=== PATIENT | female | born 1965 | race American Indian/Alaskan Native ===

== ENCOUNTER 2016-09-11 16:36 | Emergency (ER) | payer OTHER, BC ==
[2016-09-11 16:46] VITALS: BMI 26.9
[2016-09-11 16:52] VITALS: BP 116/76; PULSE 71; RESP 16; TEMP 97.9; O2SAT 98
--- NOTE | 2016-09-11 17:09 | ED PDOC ---
Arrival/HPI - General Chief Complaint: Trauma Time Seen by Provider: 09/11/16 17:04 Historian: Patient - History of Present Illness Narrative History of Present Illness (Text): 09/11/16 18:27 51-year-old female presents today with neck and upper back pain status post fall. Patient states she was sitting on a stool at work and Slid backwards off the stool falling towards the ground. Patient states she braced herself with her arms as she fell off the back of the stool and strained her back during the bracing. Patient denies numbness weakness or tingling in the extremities. Denies hitting her head. No headache dizziness or weakness. No chest pain or shortness of breath. Patient states incident occurred prior to arrival. Patient states her back did not hit the ground. She denies low back pain. Past Medical History - Provider Review Nursing Documentation Reviewed: Yes - Travel History Have you recently traveled outside [place] w/in the past 3 mons?: No - Infectious Disease Hx of Infectious Diseases: None - Tetanus Immunization Tetanus Immunization: Unknown - Reproductive Menopause: Yes - Cardiac Hx Hypertension: Yes - Pulmonary Hx Respiratory Disorders: No - Neurological Hx Neurological Disorder: No - HEENT Hx HEENT Disorder: No - Renal Hx Renal Disorder: No - Endocrine/Metabolic Hx Endocrine Disorders: No - Hematological/Oncological Hx Blood Disorders: No - Integumentary Hx Dermatological Disorder: No - Musculoskeletal/Rheumatological Hx Musculoskeletal Disorders: No - Gastrointestinal Hx Gastrointestinal Disorders: No - Genitourinary/Gynecological Hx Genitourinary Disorders: No - Psychiatric Hx Psychophysiologic Disorder: No Hx Substance Use: No - Surgical History Hx Hysterectomy: Yes Other/Comment: left breast cyst removed - Anesthesia Hx Anesthesia: Yes Hx Anesthesia Reactions: No Hx Malignant Hyperthermia: No Family/Social History - Physician Review Nursing Documentation Reviewed: Yes Family/Social History: Unknown Family HX Smoking Status: Never Smoked Hx Alcohol Use: No Hx Substance Use: No Allergies/Home Meds Allergies/Adverse Reactions: Allergies aspirin Adverse Reaction (Verified 06/08/16 18:30) SWELLING ciprofloxacin [From Cipro] Adverse Reaction (Verified 06/08/16 18:30) RASH ciprofloxacin HCl [From Cipro] Adverse Reaction (Verified 06/08/16 18:30) RASH Home Medications: Home Meds Medication Instructions Recorded Confirmed Candesartan/Hydrochlorothiazid 32 mg PO DAILY 06/08/16 06/08/16 [Candesartan-Hctz 32-12.5 mg Tb] Review of Systems - Review of Systems Constitutional: absent: Fatigue, Fevers Respiratory: absent: SOB, Cough Cardiovascular: absent: Chest Pain, Palpitations Gastrointestinal: absent: Abdominal Pain, Diarrhea, Nausea, Vomiting Genitourinary Female: absent: Dysuria, Frequency Musculoskeletal: Back Pain, Neck Pain. absent: Arthralgias Skin: absent: Rash, Pruritis Neurological: absent: Headache, Dizziness Physical Exam Vital Signs Reviewed: Yes Vital Signs Temp Pulse Resp BP Pulse Ox 09/11/16 16:46 97.9 F 71 16 116/76 98 Temperature: Afebrile Blood Pressure: Normal Pulse: Regular Respiratory Rate: Normal Appearance: Positive for: Well-Appearing, Non-Toxic, Comfortable Pain Distress: None Mental Status: Positive for: Alert and Oriented X 3 - Systems Exam Head: Present: Atraumatic Mouth: Present: Moist Mucous Membranes Neck: Present: Normal Range of Motion, Paraspinal Tenderness (+ bilateral paraspinal and trapezius tenderness. no midline tenderness. ), Trachea Midline. No: MIDLINE TENDERNESS Respiratory/Chest: Present: Clear to Auscultation, Good Air Exchange. No: Respiratory Distress, Accessory Muscle Use Cardiovascular: Present: Regular Rate and Rhythm, Normal S1, S2. No: Murmurs Back: Present: Normal Inspection, Paraspinal Tenderness (minimal upper thoracic paraspinal tenderness. ). No: Midline Tenderness Upper Extremity: Present: Normal Inspection, Normal ROM Lower Extremity: Present: Normal ROM Neurological: Present: GCS=15, Motor Func Grossly Intact, Normal Sensory Function, Gait Normal Skin: Present: Warm, Dry, Normal Color. No: Rashes Psychiatric: Present: Alert, Oriented x 3 Medical Decision Making ED Course and Treatment: 09/11/16 18:31 Patient nontoxic well-appearing in no distress with stable vital signs. Patient states she has taken Motrin at home even though she has an aspirin allergy. Patient states she has no allergy to Motrin. Patient states she would like to take a Motrin now. motrin given po Flexeril given for muscle spasms The incident occurred during working hours. The patient was advised to follow- up with employee health tomorrow. Patient verbalizes understanding of discharge instructions and need for immediate followup. Impression: Back pain, neck pain Motrin every 6 hours as needed for pain Flexeril one tablet every 8 hours as needed for muscle spasms: May cause drowsiness Followup with the orthopedist within the next 2 days Followup with primary care physician within the next 2 days Return if symptoms worsen persist or if new symptoms develop - Medication Orders Current Medication Orders: Discontinued Medications Cyclobenzaprine HCl (Flexeril) 10 mg PO STAT STA Stop: 09/11/16 17:06 Last Admin: 09/11/16 17:19 Dose: 10 MG Ibuprofen (Motrin Tab) 600 mg PO STAT STA Stop: 09/11/16 17:06 Last Admin: 09/11/16 17:20 Dose: 600 MG MAR Pain/Vitals Document 09/11/16 17:20 [facility] (Rec: 09/11/16 17:20 [facility] [id number]) Pain Reassessment Is This A Pain ReAssessment? No Sleep Is patient sleeping during reassessment? No Presence of Pain Presence of Pain Yes Pain Scale Used Pain Scale Used Numeric Location Pain Location Body Site Back Intensity 6 Disposition/Present on Arrival - Present on Arrival Any Indicators Present on Arrival: No History of DVT/PE: No History of Uncontrolled Diabetes: No Urinary Catheter: No History of Decub. Ulcer: No History Surgical Site Infection Following: Orthopedic Procedures - Disposition Have Diagnosis and Disposition been Completed?: Yes Diagnosis: Back pain, Neck pain Disposition: HOME/ ROUTINE Disposition Time: 17:07 Patient Plan: Discharge Condition: GOOD Discharge Instructions (ExitCare): Back Pain (ED) Additional Instructions: Motrin every 6 hours as needed for pain Flexeril one tablet every 8 hours as needed for muscle spasms: May cause drowsiness Follow up with Employee health tomorrow. Return if symptoms worsen persist or if new symptoms develop Prescriptions: Cyclobenzaprine [Cyclobenzaprine HCl] 10 mg PO Q8 #10 tab Ibuprofen [Motrin] 600 mg PO Q6H PRN #20 tab PRN Reason: pain/fever reduction Referrals: Perez King III, MD [Medical Doctor] - Follow up with primary Forms: WORK NOTE
== END 2016-09-11 17:35 | disposition home or self-care (01) ==
LOC: ED 16:36
DX: M54.2 Cervicalgia (principal); M54.9 Dorsalgia, unspecified

== ENCOUNTER 2017-02-26 14:02 | Emergency (ER) | payer BC ==
[2017-02-26 14:03] VITALS: BMI 26.9
[2017-02-26 14:12] VITALS: TEMP 98.2; O2SAT 98
--- NOTE | 2017-02-26 14:49 | ED PDOC ---
Arrival/HPI - General Historian: Patient - History of Present Illness Time/Duration: Other (see hpi) Quality: Aching Context: Home - General Chief Complaint: Back Pain Time Seen by Provider: 02/26/17 14:26 - History of Present Illness Narrative History of Present Illness (Text): 02/26/17 14:46 This 51 yo female with pmh htn, presents to this ED c/o b/l neck pain, and lower back pain since yesterday. Patient stated pain worsen this morning. Patient admits lifting, and moving all day at work, but she denies fall, trauma , or heavy lifting. Patient denies urinary symptoms, /GI incontinence, saddle anesthesia, urinary retention, or abnormal gait. Patient is alergic to ASA only, but she is not allergic to NSAIDs. Patient took Motrin 400 mg x 3 hours ago. (Kamilla Esteban) Past Medical History - Provider Review Nursing Documentation Reviewed: Yes - Infectious Disease Hx of Infectious Diseases: None - Tetanus Immunization Tetanus Immunization: Unknown - Cardiac Hx Cardiac Disorders: Yes Hx Hypertension: Yes - Pulmonary Hx Respiratory Disorders: No - Neurological Hx Neurological Disorder: No - HEENT Hx HEENT Disorder: No - Renal Hx Renal Disorder: No - Endocrine/Metabolic Hx Endocrine Disorders: No - Hematological/Oncological Hx Blood Disorders: No - Integumentary Hx Dermatological Disorder: No - Musculoskeletal/Rheumatological Hx Musculoskeletal Disorders: No - Gastrointestinal Hx Gastrointestinal Disorders: No - Genitourinary/Gynecological Hx Genitourinary Disorders: No - Psychiatric Hx Psychophysiologic Disorder: No Hx Substance Use: No - Surgical History Hx Hysterectomy: Yes Other/Comment: left breast cyst removed - Anesthesia Hx Anesthesia: Yes Hx Anesthesia Reactions: No Hx Malignant Hyperthermia: No Family/Social History - Physician Review Nursing Documentation Reviewed: Yes Family/Social History: Other (non-contributory) Smoking Status: Never Smoked Hx Alcohol Use: No Hx Substance Use: No Allergies/Home Meds Allergies/Adverse Reactions: Allergies latex Allergy (Verified 02/26/17 14:12) RASH aspirin Adverse Reaction (Verified 02/26/17 14:12) SWELLING ciprofloxacin [From Cipro] Adverse Reaction (Verified 02/26/17 14:12) RASH ciprofloxacin HCl [From Cipro] Adverse Reaction (Verified 02/26/17 14:12) RASH Home Medications: Home Meds Medication Instructions Recorded Confirmed Calcium Carb/Vitamin D3/Vit K1 1 tab PO DAILY 02/26/17 02/26/17 [Calcium + D Soft Chewable Tab] Candesartan Cilexetil [Candesartan 32 mg PO DAILY 02/26/17 02/26/17 Cilexetil] Montelukast [Singulair] 10 mg PO DAILY 02/26/17 02/26/17 hydroCHLOROthiazide [Hydrodiuril] 25 mg PO HS 02/26/17 02/26/17 Review of Systems - Review of Systems Constitutional: Normal. absent: Fatigue, Weight Change, Fevers Eyes: Normal ENT: Normal Respiratory: Normal. absent: SOB, Cough Cardiovascular: Normal. absent: Chest Pain, Palpitations Gastrointestinal: Normal. absent: Abdominal Pain, Nausea, Vomiting Genitourinary Female: Normal Musculoskeletal: Back Pain, Neck Pain. absent: Arthralgias, Joint Swelling, Myalgias Skin: Normal. absent: Rash Neurological: Normal. absent: Headache, Dizziness, Focal Weakness, Gait Changes , Speech Changes, Facial Droop, Disequilibrium, Seizure Endocrine: Normal Hemo/Lymphatic: Normal Psychiatric: Normal Physical Exam Temperature: Afebrile Blood Pressure: Normal Pulse: Regular Respiratory Rate: Normal Appearance: Positive for: Well-Appearing, Non-Toxic, Comfortable Pain Distress: None Mental Status: Positive for: Alert and Oriented X 3 - Systems Exam Head: Present: Atraumatic, Normocephalic Pupils: Present: PERRL Extroacular Muscles: Present: EOMI Conjunctiva: Present: Normal Mouth: Present: Moist Mucous Membranes Neck: Present: Normal Range of Motion, Paraspinal Tenderness (mild b/l paravertebral tenderness. no vertebral step off. no vertebral oint tenderness) . No: Meningeal Signs, MIDLINE TENDERNESS Respiratory/Chest: Present: Clear to Auscultation, Good Air Exchange. No: Respiratory Distress, Accessory Muscle Use, Wheezes, Retracting, Rhonchi Cardiovascular: Present: Regular Rate and Rhythm, Normal S1, S2. No: Murmurs Abdomen: Present: Normal Bowel Sounds. No: Tenderness, Distention, Peritoneal Signs Back: Present: Normal Inspection. No: CVA Tenderness, Midline Tenderness, Paraspinal Tenderness, Pain with Leg Raise, Decubitus Ulcer Upper Extremity: Present: Normal Inspection. No: Cyanosis, Edema Lower Extremity: Present: Normal Inspection. No: Edema Neurological: Present: GCS=15, CN II-XII Intact, Speech Normal, Motor Func Grossly Intact, Normal Sensory Function, Normal Cerebellar Funct, Norm Deep Tendon Reflexes, Gait Normal, Memory Normal Skin: Present: Warm, Dry, Normal Color. No: Rashes Psychiatric: Present: Alert, Oriented x 3, Normal Insight, Normal Concentration Vital Signs Temp Pulse Resp BP Pulse Ox 02/26/17 15:21 69 18 117/74 98 02/26/17 14:09 98.2 F 72 16 119/79 98 Medical Decision Making Re-evaluation Time: 15:25 Reassessment Condition: Re-examined, Improved ED Course and Treatment: I was available for consultation during PA evaluation. The chart was reviewed by me, and I agree with disposition. The documented history was done by the physician food stand manager. The documented physical exam was done by the physician food stand manager. The documented procedures were done by the physician food stand manager. ( Jack Martinez) 02/26/17 15:24 Re-evaluation. Patient feels better. Discussed results and plan with patient who expresses understanding. All questions answered and there is agreement with the plan to discharge home with instructions. Patient stable for discharge. Return if symptoms persist or worsen. (Kamilla Esteban) - Medication Orders Current Medication Orders: Discontinued Medications Ketorolac Tromethamine (Toradol) 15 mg IM STAT STA Stop: 02/26/17 14:42 Last Admin: 02/26/17 15:17 Dose: 15 mg MAR Pain Assessment Document 02/26/17 15:17 EQ (Rec: 02/26/17 15:17 EQ [facility] [id number] Pain Reassessment Is this a pain reassessment? No Sleep Is patient sleeping during reassessment? No Presence of Pain Presence of Pain Yes IM Administration Charges Document 02/26/17 15:17 EQ (Rec: 02/26/17 15:17 EQ [facility] [id number] Charges for Administration # of IM Administrations 1 Ondansetron HCl (Zofran Odt) Confirm Administered Dose 4 mg .ROUTE .STK-MED ONE Stop: 02/26/17 15:01 Last Admin: 02/26/17 15:17 Dose: 4 mg Disposition/Present on Arrival - Present on Arrival Any Indicators Present on Arrival: No History of DVT/PE: No History of Uncontrolled Diabetes: No Urinary Catheter: No History of Decub. Ulcer: No History Surgical Site Infection Following: Orthopedic Procedures - Disposition Have Diagnosis and Disposition been Completed?: Yes Disposition Time: 15:25 Patient Plan: Discharge - Disposition Diagnosis: Neck pain, Back pain Disposition: HOME/ ROUTINE Condition: GOOD Discharge Instructions (ExitCare): Back Pain (ED), Cervical Sprain (ED) Additional Instructions: Call private doctor for follow up visit in 1-2 days. Take medication as instructed. Return to emergency if symptoms worsen. Prescriptions: diaZEpam [Valium] 5 mg PO DAILY #7 tab Famotidine [Pepcid] 40 mg PO DAILY #10 tablet Naproxen 500 mg PO BID PRN #14 tab PRN Reason: Pain, Severe (8-10) Referrals: [facility] Frieda Recody, [Primary Care Provider] - Follow up with primary Forms: [employer] (Turkish), WORK NOTE
[2017-02-26 15:21] VITALS: BP 117/74; PULSE 69; RESP 18
== END 2017-02-26 15:59 | disposition home or self-care (01) ==
LOC: ED 14:02
DX: M54.2 Cervicalgia (principal); M54.5 Low back pain; I10 Essential (primary) hypertension
CPT/HCPCS: 96372; 99282; J1885